=== PATIENT | female | born 1995 | race Caucasian/White ===

== ENCOUNTER 2020-03-04 22:43 | Emergency (ER) | payer MEDICAID ==
[~2020-03-04] VITALS: Ht 149.9 cm; Wt 66.4 kg
[2020-03-04 22:45] VITALS: BP 126/82
[2020-03-04] MEDS ORDERED: SERT25TA PO (23:46)
[2020-03-04] MEDS ORDERED: ARIP10TA15 PO (23:46)
[2020-03-04] MEDS ORDERED: FAMO40TA73 PO (23:46)
== END 2020-03-05 00:02 | disposition home or self-care (01) ==
LOC: ER 22:44
DX: F12.90 Cannabis use, unspecified, uncomplicated (principal); J45.909 Unspecified asthma, uncomplicated; F20.9 Schizophrenia, unspecified; Z72.89 Other problems related to lifestyle; Z76.0 Encounter for issue of repeat prescription; Z59.0 Homelessness; Z79.899 Other long term (current) drug therapy
CPT/HCPCS: 99283

== ENCOUNTER 2020-04-14 10:56 | Emergency (ER) | payer MEDICAID, OTHER ==
[~2020-04-14] VITALS: Ht 149.9 cm; Wt 83.5 kg
[~2020-04-14 10:56] MED LIST: ARIP10TA15 PO; FAMO40TA73 PO; SERT25TA PO
[2020-04-14 11:04] VITALS: BP 118/61
[2020-04-14] MEDS ORDERED: ibuprofen tablet 400 MG TABLET PO ONE (11:55)
== END 2020-04-14 12:09 | disposition home or self-care (01) ==
LOC: ER 10:56
DX: S63.591A Other specified sprain of right wrist, initial encounter (principal); J45.909 Unspecified asthma, uncomplicated; F20.9 Schizophrenia, unspecified; F12.90 Cannabis use, unspecified, uncomplicated; Z72.89 Other problems related to lifestyle; Z59.0 Homelessness; Z79.899 Other long term (current) drug therapy; W18.30XA Fall on same level, unspecified, initial encounter; Y93.89 Activity, other specified; Y92.89 Other specified places as the place of occurrence of the external cause; Y99.8 Other external cause status
CPT/HCPCS: 29125; 73110; 73130; 99284

== ENCOUNTER 2020-04-19 12:38 | Emergency (ER) | payer MEDICAID, OTHER ==
[~2020-04-19] VITALS: Ht 149.9 cm; Wt 78.2 kg
[2020-04-19] MEDS ORDERED: ketorolac tromethamine 15mg/ml inj. IM ONE (13:10)
[2020-04-19] MEDS ORDERED: IBUP-1984 PO (13:39)
[2020-04-19 14:00] VITALS: BP 110/64
== END 2020-04-19 14:04 | disposition home or self-care (01) ==
LOC: ER 12:38
DX: S63.501A Unspecified sprain of right wrist, initial encounter (principal); J45.909 Unspecified asthma, uncomplicated; F20.9 Schizophrenia, unspecified; F12.90 Cannabis use, unspecified, uncomplicated; Z79.899 Other long term (current) drug therapy; Z59.0 Homelessness; Z72.89 Other problems related to lifestyle; W19.XXXA Unspecified fall, initial encounter; Y93.89 Activity, other specified; Y92.89 Other specified places as the place of occurrence of the external cause; Y99.8 Other external cause status
CPT/HCPCS: 73110; 96372; 99284; J1885

== ENCOUNTER 2020-05-01 15:28 | Emergency (ER) | payer MEDICAID ==
[~2020-05-01] VITALS: Ht 149.9 cm; Wt 78.2 kg
[2020-05-01 15:39] VITALS: BP 115/70
== END 2020-05-01 17:06 | disposition home or self-care (01) ==
LOC: ER 15:28
DX: S93.401A Sprain of unspecified ligament of right ankle, initial encounter (principal); J45.909 Unspecified asthma, uncomplicated; F17.200 Nicotine dependence, unspecified, uncomplicated; F12.90 Cannabis use, unspecified, uncomplicated; Z72.89 Other problems related to lifestyle; Z59.0 Homelessness; Z79.899 Other long term (current) drug therapy; X50.1XXA Overexertion from prolonged static or awkward postures, initial encounter; Y93.41 Activity, dancing; Y92.89 Other specified places as the place of occurrence of the external cause; Y99.8 Other external cause status
CPT/HCPCS: 73610; 99283

== ENCOUNTER 2020-12-03 22:18 | Emergency (ER) | payer MEDICAID, OTHER ==
[~2020-12-03] VITALS: Ht 149.9 cm; Wt 78.2 kg
[2020-12-03 22:21] VITALS: BP 154/92
[2020-12-03] MEDS ORDERED: MYCOL30CR TP ×2 (22:57)
[2020-12-04] MEDS ORDERED: MYCOL30CR TP (00:35)
== END 2020-12-03 23:11 | disposition home or self-care (01) ==
LOC: ER 22:20
DX: B37.89 Other sites of candidiasis (principal); J45.909 Unspecified asthma, uncomplicated; F20.9 Schizophrenia, unspecified; F12.90 Cannabis use, unspecified, uncomplicated; Z72.89 Other problems related to lifestyle; Z59.0 Homelessness; Z79.899 Other long term (current) drug therapy
CPT/HCPCS: 99283

== ENCOUNTER 2022-01-05 13:04 | Emergency (ER) | payer SELFPAY ==
[~2022-01-05] VITALS: Ht 160 cm; Wt 84.5 kg
[~2022-01-05 13:04] MED LIST changes: +NYST30CR35 TP
[2022-01-05 13:13] VITALS: BP 133/86
[2022-01-05] MEDS ORDERED: HYDROcodone/acetaminophen 5mg/325mg tablet PO ONE (17:35)
== END 2022-01-05 18:01 | disposition home or self-care (01) ==
LOC: ER 13:05
DX: S06.0X9A Concussion with loss of consciousness of unspecified duration, initial encounter (principal); M25.561 Pain in right knee; R53.83 Other fatigue; R11.10 Vomiting, unspecified; J45.909 Unspecified asthma, uncomplicated; F20.9 Schizophrenia, unspecified; F12.90 Cannabis use, unspecified, uncomplicated; Z72.89 Other problems related to lifestyle; Z59.00 Homelessness unspecified; Z79.899 Other long term (current) drug therapy; X58.XXXA Exposure to other specified factors, initial encounter; Y93.89 Activity, other specified; Y92.89 Other specified places as the place of occurrence of the external cause; Y99.8 Other external cause status
CPT/HCPCS: 29505; 70450; 73564; 99284

== ENCOUNTER 2022-03-31 13:26 | Emergency (ER) | payer MEDICAID ==
[~2022-03-31] VITALS: Ht 149.9 cm; Wt 80.2 kg
[2022-03-31] MEDS ORDERED: HYDROcodone/acetaminophen 10/325mg tab PO ONE (14:45)
[2022-03-31 14:53] LABS: BASOPHILS % (AUTO) 0.5 % (0-1); EOSINOPHILS # (AUTO) 0.1 X10'3 (0-0.9); HEMATOCRIT 40.3 % (35.0-45.0); HEMOGLOBIN 13.7 g/dl (12.0-16.0); LYMPHOCYTES # (AUTO) 3.1 X10'3 (1.1-4.8); LYMPHOCYTES % (AUTO) 31.7 % (21-51); MEAN CORPUSCULAR HEMOGLOBIN 32.1 PG (27.0-31.0); MEAN CORPUSCULAR HGB CONC 33.9 g/dL (33.0-36.5); MEAN CORPUSCULAR VOLUME 94.8 FL (78-98); MONOCYTES # (AUTO) 0.5 X10'3 (0-0.9); MONOCYTES % (AUTO) 5.6 % (2-12); NEUTROPHILS # (AUTO) 5.9 X10'3 (1.8-7.7); NEUTROPHILS % (AUTO) 61.2 % (42-75); PLATELET COUNT 214 X10'3 (140-440); RED BLOOD COUNT 4.26 X10'6 (4.20-5.60); RED CELL DISTRIBUTION WIDTH 13.1 % (11.5-14.5); WHITE BLOOD COUNT 9.7 X10'3 (4.5-11.0)
[2022-03-31 15:17] LABS: ALANINE AMINOTRANSFERASE 15 U/L (12-78); ALBUMIN 3.8 G/DL (3.4-5.0); ALBUMIN/GLOBULIN RATIO 1.2 (1.1-1.5); ALKALINE PHOSPHATASE 70 IU/L (46-116); ANION GAP 8 (8-16); ASPARTATE AMINO TRANSFERASE 14 U/L (10-37); BILIRUBIN,TOTAL 0.2 MG/DL (0.1-1.0); BLOOD UREA NITROGEN 8 MG/DL (7-18); BUN/CREATININE RATIO 12.5 (6.6-38.0); CALCIUM 8.3 MG/DL (8.5-10.1); CHLORIDE 105 MMOL/L (99-107); CREATININE 0.64 MG/DL (0.40-0.90); GLUCOSE 94 MG/DL (70-104); POTASSIUM 4.2 MMOL/L (3.5-5.1); SODIUM 138 MMOL/L (135-145); TOTAL CARBON DIOXIDE 25.2 MMOL/L (24-32); eGFR > 90 ML/MIN
[2022-03-31] MEDS ORDERED: HYDR-3965 PO (16:42)
[2022-03-31 17:18] VITALS: BP 121/76
== END 2022-03-31 17:27 | disposition home or self-care (01) ==
LOC: ER 13:27
DX: M77.8 Other enthesopathies, not elsewhere classified (principal); G89.29 Other chronic pain; M25.561 Pain in right knee; F17.210 Nicotine dependence, cigarettes, uncomplicated; F20.9 Schizophrenia, unspecified; J45.909 Unspecified asthma, uncomplicated; Z59.00 Homelessness unspecified; Z79.899 Other long term (current) drug therapy
CPT/HCPCS: 36415; 73564; 76882; 80053; 83735; 84550; 85025; 85651; 86140; 99285

== ENCOUNTER 2024-02-22 13:27 | Emergency (ER) | payer MEDICAID, OTHER ==
[~2024-02-22] VITALS: Ht 149.9 cm; Wt 85.5 kg
[2024-02-22 13:48] VITALS: TEMP 96.2
[2024-02-22] MEDS: ondansetron 4mg rapidly disintigrating tab PO ONE (14:26)
[2024-02-22 14:38] LABS: URINE HCG NEGATIVE (NEG)
[2024-02-22 14:40] LABS: CLARITY,URINE CLEAR (Clear); COLOR,URINE YELLOW (Yellow); PH,URINE 5.5 (4.8-8.0); UA COLLECTION TYPE CLN CATCH MIDSTREAM
[2024-02-22 14:41] LABS: BILIRUBIN,URINE NEGATIVE (Neg); GLUCOSE, URINE NEGATIVE (Neg); KETONES,URINE NEGATIVE (Neg); LEUKOCYTE ESTERASE ,URINE NEGATIVE (Neg); NITRITES, URINE NEGATIVE (Neg); OCCULT BLOOD,URINE NEGATIVE (Neg); PROTEIN,URINE NEGATIVE (Neg); UROBILINOGEN,URINE 0.2 E.U/dL (0.2-1.0)
[2024-02-22 14:50] LABS: BASOPHILS # (AUTO) 0.1 X10'3 (0-0.2); BASOPHILS % (AUTO) 0.5 % (0-1); EOSINOPHILS # (AUTO) 0.2 X10'3 (0-0.9); EOSINOPHILS % (AUTO) 1.9 % (0-6); HEMATOCRIT 42.1 % (35.0-45.0); LYMPHOCYTES # (AUTO) 2.7 X10'3 (1.1-4.8); LYMPHOCYTES % (AUTO) 26.4 % (21-51); MEAN CORPUSCULAR HEMOGLOBIN 31.9 PG (27.0-31.0); MEAN CORPUSCULAR HGB CONC 33.2 g/dL (33.0-36.5); MEAN CORPUSCULAR VOLUME 96.1 FL (78-98); MEAN PLATELET VOLUME 10.1 FL (7.4-10.4); MONOCYTES # (AUTO) 0.8 X10'3 (0-0.9); MONOCYTES % (AUTO) 7.9 % (2-12); NEUTROPHILS # (AUTO) 6.5 X10'3 (1.8-7.7); NEUTROPHILS % (AUTO) 63.3 % (42-75); PLATELET COUNT 212 X10'3 (140-440); RED BLOOD COUNT 4.38 X10'6 (4.20-5.60); RED CELL DISTRIBUTION WIDTH 13.9 % (11.5-14.5); WHITE BLOOD COUNT 10.2 X10'3 (4.5-11.0)
[2024-02-22] MEDS: normal saline 1000ML IV soln IVB ONE (15:01)
[2024-02-22] MEDS: metoclopramide 5 mg/ml inj IV ONE (15:01)
[2024-02-22] MEDS: diphenhydrAMINE 50 mg/ml inj IV ONE (15:02)
[2024-02-22 15:09] LABS: ALANINE AMINOTRANSFERASE 17 U/L (12-78); ALBUMIN 3.7 G/DL (3.4-5.0); ALBUMIN/GLOBULIN RATIO 1.1 (1.1-1.5); ALKALINE PHOSPHATASE 71 IU/L (46-116); ANION GAP 8 (8-16); ASPARTATE AMINO TRANSFERASE 19 U/L (10-37); BILIRUBIN,TOTAL 0.3 MG/DL (0.1-1.0); BLOOD UREA NITROGEN 12 MG/DL (7-18); BUN/CREATININE RATIO 18.8 (10.0-20.0); CALCIUM 8.5 MG/DL (8.5-10.1); CHLORIDE 106 MMOL/L (99-107); CREATININE 0.64 MG/DL (0.40-0.90); GLUCOSE 95 MG/DL (70-104); LIPASE 42 U/L (16-77); POTASSIUM 3.9 MMOL/L (3.5-5.1); SODIUM 138 MMOL/L (135-145); TOTAL CARBON DIOXIDE 23.9 MMOL/L (24-32); eCRCL 90 ML/MIN; eGFR > 90 ML/MIN
[2024-02-22] MEDS ORDERED: ONDA-245 PO (15:16)
[2024-02-22 16:03] VITALS: BP 134/93; PULSE 60; RESP 16; O2SAT 98
== END 2024-02-22 16:05 | disposition home or self-care (01) ==
LOC: ER 13:28
DX: R10.13 Epigastric pain (principal); R11.10 Vomiting, unspecified; J45.909 Unspecified asthma, uncomplicated; F20.9 Schizophrenia, unspecified; F12.90 Cannabis use, unspecified, uncomplicated; Z88.1 Allergy status to other antibiotic agents; Z87.19 Personal history of other diseases of the digestive system
CPT/HCPCS: 36415; 80053; 81003; 81025; 83690; 85025; 96361; 96374; 96375; 99284; J1200; J2765; J7030

== ENCOUNTER 2024-10-23 14:01 | Emergency (ER) | payer MEDICAID, OTHER ==
[~2024-10-23] VITALS: Ht 152.4 cm; Wt 68.2 kg
[~2024-10-23 14:01] MED LIST changes: -NYST30CR35 TP; +NYST30CR46 TP; +ONDA-245 PO
--- NOTE | 2024-10-23 14:36 | RADIOLOGY REPORT ---
CLINICAL INDICATION: ANKLE PAIN TECHNIQUE: 3 radiographic views of the left ankle T1 were obtained. Comparison: ANKLE, COMPLETE(3VW MIN) on DOS: 05/01/20 FINDINGS/IMPRESSION: There is no evidence of acute fracture or dislocation. The visualized joint space is well maintained. The alignment is anatomical. There is no radiopaque foreign body.
--- NOTE | 2024-10-23 14:36 | RADIOLOGY REPORT ---
CLINICAL INDICATION: FOOT PAIN TECHNIQUE: 4 radiographic views of the left foot were obtained. Comparison: None FINDINGS/IMPRESSION: There is no evidence of acute fracture or dislocation. The visualized joint space is well maintained. The alignment is anatomical. There is no radiopaque foreign body.
--- NOTE | 2024-10-23 16:10 | Physician Documentation ---
History of Present Illness General Chief Complaint: Ankle pain Stated Complaint: L FOOT PAIN Time Seen by MD: 15:48 Primary Medical Doctor: NONE History of Present Illness Initial Comments 29-year-old female presents to emergency department for evaluation of left ankle injury. Secondary concerns of rash of the right upper extremity left lower extremity. Patient wonders if he has maybe infectious or from bug bites. Patient obviously under the influence a methamphetamines. Medication Reconciliation Allergies: Coded Allergies: No Known Allergies (Unverified , 02/22/24) Scheduled Aripiprazole* (Abilify*), 1 TAB PO DAILY Famotidine (Pepcid), 1 TAB PO DAILY Nystatin/Triamcin Cream* (Mycolog Cream*), 1 APPLIC TP BID Ondansetron 8mg ODT (Ondansetron Odt), 1 TAB PO Q8H Sertraline Hcl* (Zoloft*), 1 TAB PO DAILY Past Medical History Past Medical History: Asthma, Gastritis, Schizophrenia Past Surgical History: noncontributory Alcohol Use: Heavy Drug Use: marijuana Lives In: Homeless Review of Systems All Other Systems at this time: Reviewed and Negative Musc: Reports: joint pain, joint swelling Integ: Reports: rash Physical Exam Physical Exam Vital Signs: RN Vital Signs have been reviewed: Yes, Temperature: 98.0, Source: Temporal, Heart Rate: 117, Respiratory Rate: 16, BP: 98/53, Pulse Oximetry: 96, Weight: 68.180 Oxygen Flow Rate: 0 General Appearance: alert, WD/WN, other (meth use) Head: normal inspection Face: normal inspection Pupils/EOM/Fundus: PERRLA Neck: non-tender Respiratory: no respiratory distress Extremities: swelling Neurologic: oriented x4, remanufacturing technician II-XII nml as tested Psychiatric: normal mood/affect, anxiety Skin: normal color Progress Results/Orders Results/Orders Orders - JENNY GIRON Acetaminophen 325mg Tablet (Tylenol Tabl (10/23/24 16:05) Vital Signs 10/23/24 14:02 Temp 98.0 Pulse 117 Resp 16 B/P (MAP) 98/53 Pulse Ox 96 O2 Flow Rate 0 Medical Decision Making Differential Diagnosis Examination history consistent with left ankle injury. Patient's x-rays are r eassuring for no fracture dislocation. She will receive Maurilio wrap for comfort and support. Outpatient Rx for coverage of skin rash. Departure Disposition: HOME / SELF CARE / HOMELESS Impression: Primary Impression: Sprain of ankle Qualified Codes: S93.402A - Sprain of unspecified ligament of left ankle, initial encounter Additional Impression: Skin rash Condition: Improved Discharge Instructions: Ankle Sprain Additional Instructions: Please wear your Maurilio wrap for comfort and support. Take Tylenol as directed for pain and begin antibiotic. They primary care follow up and a return if worse. Referrals: NO PRIMARY CARE PROVIDER (PCP) Education Educated: Patient Educated regarding: diagnosis, treatment Signature Scribe Signature: . Attestation: . JENNY GIRON PAC Oct 23, 2024 16:10
[2024-10-23] MEDS: acetaminophen 325mg tablet PO ONE (16:14)
[2024-10-23 16:28] VITALS: BP 100/68; PULSE 83; RESP 16; TEMP 98; O2SAT 99
== END 2024-10-23 16:29 | disposition home or self-care (01) ==
LOC: ER 14:02
DX: S93.492A Sprain of other ligament of left ankle, initial encounter (principal); R21 Rash and other nonspecific skin eruption; J45.909 Unspecified asthma, uncomplicated; F20.9 Schizophrenia, unspecified; F12.90 Cannabis use, unspecified, uncomplicated; Z79.899 Other long term (current) drug therapy; Z59.00 Homelessness unspecified; X58.XXXA Exposure to other specified factors, initial encounter; Y93.89 Activity, other specified; Y92.89 Other specified places as the place of occurrence of the external cause; Y99.8 Other external cause status
CPT/HCPCS: 73610; 73630; 99284; A6449

== ENCOUNTER 2024-10-27 04:36 | Emergency (ER) | payer MEDICAID ==
[~2024-10-27] VITALS: Ht 152.4 cm; Wt 65.9 kg
--- NOTE | 2024-10-27 05:34 | VISIT NOTE ---
ED Rapid Medical Assessment History 29-year-old female with known abscesses to right thigh, bilateral upper extremities, seen here several days ago, prescribed antibiotics but did not pick him up, presents for evaluation of worsening pain, redness, drainage from the abscess sites. Pain is moderate in its intensity. Redness is spreading especially on her right thigh. Reports chills without fever. Exam: Physical examination: GENERAL: Awake, alert, oriented, GCS 15, no apparent distress, non-toxic appearing, answers questions, follows commands appropriately. HEENT: Atraumatic, normocephalic, pupils equal, extraocular muscles intact Active gross movements, sclerae anicteric, mucus membranes moist, no stridor. NECK: Midline, no JVD CARDIOVASCULAR: Good skin perfusion without evidence of pallor, mottling. PULMONARY: Nonlabored, symmetric chest rise, no audible wheezing, no accessory muscle use, no respiratory distress, speaking in full sentences. GASTROINTESTINAL: Not distended. NEUROLOGIC: Lucid with normal mental status. Normal facial symmetry. Moves all extremities symmetrically and with purpose. No truncal ataxia. Speech is fluid without evidence of dysarthria or aphasia, no focal deficits appreciated. EXTREMITIES: Acute deformities Skin: warm, dry PSYCHIATRIC: Normal affect, normal insight, normal concentration. Focused exam: [] Fairly large area of a 15 x 15 cellulitis with large fluctuant area of approximately 5 cm abscess to the mid anterior thigh on the right side. Smaller 3 cm bilateral upper extremity abscesses. No purulent drainage. Calor and erythema noted. Assessment and Plan Considering this is a bounce back, we will obtain labs and provide IV antibiotics. LAVONNE POLANCO DO Oct 27, 2024 05:34
--- NOTE | 2024-10-27 06:13 | Physician Documentation ---
History of Present Illness ~ Chief Complaint: Abscess Stated Complaint: ABSCESS Time Seen by MD: 06:01 Primary Medical Doctor: NONE Mode of Arrival: POV HPI Patient presenting for evaluation of abscesses. She is complaining of painful large abscess to her right thigh left forearm and right forearm. She also reports having diarrhea a few days ago which has resolved. She has not taken any of her prescribed antibiotics due to not having any money Tetanus Within 5 Years: No Medication Reconciliation Allergies: Coded Allergies: No Known Allergies (Unverified , 02/22/24) Scheduled Aripiprazole* (Abilify*), 1 TAB PO DAILY Cephalexin (Cephalexin), 1 CAP PO Q6H Doxycycline Hyclate (Doxycycline Hyclate), 1 TAB PO Q12H Famotidine (Pepcid), 1 TAB PO DAILY Nystatin/Triamcin Cream* (Mycolog Cream*), 1 APPLIC TP BID Ondansetron 8mg ODT (Ondansetron Odt), 1 TAB PO Q8H Potassium Chloride* (Klor-Con*), 1 TAB PO QID Sertraline Hcl* (Zoloft*), 1 TAB PO DAILY Past Medical History Past Medical History: Asthma, Gastritis, Schizophrenia Past Surgical History: noncontributory Alcohol Use: Heavy Drug Use: marijuana Lives In: Homeless Review of Systems All Other Systems at this time: Reviewed and Negative Constitutional: Denies: fever Physical Exam Vital Signs: Temperature: 98.9, Heart Rate: 85, Respiratory Rate: 16, BP: 144/85, Pulse Oximetry: 99, Weight: 65.910 Oxygen Flow Rate: 0 Physical Exam Well-appearing no distress Large fluctuant abscess right medial thigh Moderate fluctuant abscess right forearm Moderate size fluctuant abscess left forearm Procedures I & D Procedure #1: Anesthesia: Lidocaine w/ Epi Blade Size: 11 Prep/Supplies: betadine prep, drapes applied, irrigated, packing placed Incision: pus drained Tolerated Procedure Well?: no Procedure Note 1 cm incision made over medial thigh 30 cc purulent material drained out Irrigated with sterile saline I & D Procedure #2: Anesthesia: Lidocaine w/ Epi Blade Size: 11 (Yes another abscess or whenever on her hand show that she has had) Prep/Supplies: dressing applied, irrigated Incision: pus drained Tolerated Procedure Well?: no Procedure Note 1 cm incision made over right dorsal forearm drained 10 cc pus irrigated I & D Procedure #3: Anesthesia: Lidocaine w/ Epi Blade Size: 11 Prep/Supplies: betadine prep, dressing applied, irrigated Incision: pus drained Tolerated Procedure Well?: no Procedure Note 1 cm incision placed over left dorsal forearm 10 cc purulent material expressed Progress Results/Orders Results/Orders Orders - LAVONNE GREEN MD Culture Body Fluid Order (10/27/24 09:34) Cult (Aer) Routine C&S+Gram St (10/27/24 07:10) Completed Orders - LAVONNE GREEN MD Lidocaine 1% W/Epi 1:100,000 (Xylocaine (10/27/24 06:30) Electrocardiogram (10/27/24 ) Potassium Cl Sr Tablet (K-Dur Tablet) (10/27/24 06:43) Morphine 10mg/Ml Inj. (Morphine Inj.) (10/27/24 07:10) Potassium Cl 20meq/100ml Bag (Potassium (10/27/24 07:15) Magnesium Oxide Tablet (Mag-Ox 400mg Tab (10/27/24 07:20) Magnesium Sulf-Water 2g/50ml (Magnesium (10/27/24 07:25) Potassium Cl 10meq/100ml Bag (Potassium (10/27/24 07:30) Potassium Cl 10meq/100ml Bag (Potassium (10/27/24 08:30) Ketamine 50mg/Ml 10ml Inj (Ketamine 50mg (10/27/24 08:15) Medications Received in ER Medications (Trade) Dose Ordered Sig/Valentin Route PRN Reason Start Time Stop Time Status Last Admin Dose Admin Ampicillin Sodium/ Sulbactam Sodium 100 ml @ 200 mls/hr Q6H IV 10/27/24 05:36 10/27/24 06:05 Cancel 10/27/24 08:27 200 MLS/HR (K-DUR tablet) 40 meq ONCE STAT PO 10/27/24 06:43 10/27/24 07:06 DC 10/27/24 07:47 40 MEQ (morphine inj.) 6 mg ONCE ONCE IV 10/27/24 07:10 10/27/24 07:11 DC 10/27/24 07:47 6 MG (mag-Ox 400mg tablet) 800 mg ONCE ONCE PO 10/27/24 07:20 10/27/24 07:27 DC 10/27/24 07:47 800 MG Potassium Chloride 100 ml @ 100 mls/hr ONCE ONCE IV 10/27/24 07:30 10/27/24 08:29 DC 10/27/24 09:37 100 MLS/HR (ketamine 50mg/ ml 10ml inj) 20 mg ONCE ONCE IV 10/27/24 08:15 10/27/24 08:23 DC 10/27/24 09:38 25 MG Vital Signs 10/27/24 10/27/24 10/27/24 10/27/24 04:39 05:46 06:49 06:50 Temp 98.9 98.9 Pulse 85 72 Resp 16 16 16 18 B/P (MAP) 144/85 120/70 (87) Pulse Ox 99 99 O2 Flow Rate 0 0 10/27/24 07:47 Resp 16 Laboratory Tests Test 10/27/24 06:00 White Blood Count 12.1 H Red Blood Count 4.08 L Hemoglobin 12.8 Hematocrit 38.2 Mean Corpuscular Volume 93.5 Mean Corpuscular Hemoglobin 31.4 H Mean Corpuscular Hemoglobin Concent 33.6 Red Cell Distribution Width 13.2 Platelet Count 214 Mean Platelet Volume 10.7 H Neutrophils (%) (Auto) 74.4 Lymphocytes (%) (Auto) 15.5 L Monocytes (%) (Auto) 8.6 Eosinophils (%) (Auto) 1.2 Basophils (%) (Auto) 0.3 Neutrophils # (Auto) 9.0 H Lymphocytes # (Auto) 1.9 Monocytes # (Auto) 1.0 H Eosinophils # (Auto) 0.1 Basophils # (Auto) 0.0 CBC Comment Sodium Level 139 Potassium Level 2.2 *L Chloride Level 99 Carbon Dioxide Level 29.0 Anion Gap 11 Blood Urea Nitrogen 6 L Creatinine 0.70 Estimated GFR/1.73 m2 > 90 BUN/Creatinine Ratio 8.6 L Glucose Level 100 Lactic Acid Level 1.0 Calcium Level 8.5 Magnesium Level 2.0 Total Bilirubin 0.5 Aspartate Amino Transf (AST/SGOT) 18 Alanine Aminotransferase (ALT/SGPT) 28 Alkaline Phosphatase 85 C-Reactive Protein 8.78 H Total Protein 7.5 Albumin 3.4 Globulin 4.1 Albumin/Globulin Ratio 0.8 L Chemistry Comments Microbiology Date/Time Source Procedure Growth Status 10/27/24 06:00 Blood A/C Right Blood Culture - Preliminary NEGATIVE (LESS THAN 24 HOURS) Resulted EKG/XRAY/CT/US/VASC/MRI EKG : Additional Comment EKG independently interpreted by myself time 6:56 a.m. indication hypokalemia normal sinus rhythm rate 73 normal axis QTC prolongation [address] depression Departure Disposition: 07 LEFT AGAINST MEDICAL ADVICE Impression: Primary Impression: Abscess Additional Impression: Hypokalemia Additional Impression Text As discussed your potassium levels are critically low. This can lead to abnormal rhythms of your heart which can potentially kill you. We strongly recommend that you stay in the hospital for treatment and evaluation of this electrolyte imbalance. You however do not want to stay in the hospital so the next best alternative is treatment as an outpatient with oral potassium repletion. Please reach out to your primary care physician to facilitate outpatient treatment and evaluation Referrals: NO PRIMARY CARE PROVIDER (PCP) Prescriptions Potassium Chloride* (Klor-Con*) 10 Meq Tablet.sa 1 TAB PO QID for 7 Days, #28 TAB Prov: LAVONNE GREEN MD 10/27/24 Cephalexin (Cephalexin) 500 Mg Capsule 1 CAP PO Q6H for 7 Days, #28 CAP Prov: LAVONNE GREEN MD 10/27/24 Doxycycline Hyclate (DOXYCYCLINE HYCLATE) 150 Mg Tablet.dr 1 TAB PO Q12H for 7 Days, #14 TAB Prov: LAVONNE GREEN MD 10/27/24 Critical Care Note Total Time (mins): 30 Critical Care Note The very real possibility of a deterioration of this patient's condition required the highest level of my preparedness for sudden, emergent intervention. I provided critical care services, which included medication orders, frequent reevaluations of the patient's condition and response to treatment, ordering and reviewing test results, and discussing the case with various consultants. Excludes time spent performing separately billable procedures. The critical care time associated with the care of the patient was 30 minutes in the management of severe hypokalemia requiring IV replacement Signature Scribe Signature: [email or web address] Attestation: LAVONNE Greene MD Oct 27, 2024 06:12
[2024-10-27 06:23] LABS: BASOPHILS % (AUTO) 0.3 % (0-1); EOSINOPHILS # (AUTO) 0.1 X10'3 (0-0.9); EOSINOPHILS % (AUTO) 1.2 % (0-6); HEMATOCRIT 38.2 % (35.0-45.0); HEMOGLOBIN 12.8 g/dl (12.0-16.0); LYMPHOCYTES # (AUTO) 1.9 X10'3 (1.1-4.8); LYMPHOCYTES % (AUTO) 15.5 % (21-51); MEAN CORPUSCULAR HEMOGLOBIN 31.4 PG (27.0-31.0); MEAN CORPUSCULAR HGB CONC 33.6 g/dL (33.0-36.5); MEAN CORPUSCULAR VOLUME 93.5 FL (78-98); MEAN PLATELET VOLUME 10.7 FL (7.4-10.4); MONOCYTES % (AUTO) 8.6 % (2-12); NEUTROPHILS % (AUTO) 74.4 % (42-75); PLATELET COUNT 214 X10'3 (140-440); RED BLOOD COUNT 4.08 X10'6 (4.20-5.60); RED CELL DISTRIBUTION WIDTH 13.2 % (11.5-14.5); WHITE BLOOD COUNT 12.1 X10'3 (4.5-11.0)
[2024-10-27] MEDS: LIDOcaine 1% W/epiNEPHrine 1:100,000 20ml vial SQ ONE (06:30)
[2024-10-27 06:35] LABS: ALANINE AMINOTRANSFERASE 28 U/L (12-78); ALBUMIN 3.4 G/DL (3.4-5.0); ALBUMIN/GLOBULIN RATIO 0.8 (1.1-1.5); ALKALINE PHOSPHATASE 85 IU/L (46-116); ANION GAP 11 (8-16); ASPARTATE AMINO TRANSFERASE 18 U/L (10-37); BILIRUBIN,TOTAL 0.5 MG/DL (0.1-1.0); BLOOD UREA NITROGEN 6 MG/DL (7-18); BUN/CREATININE RATIO 8.6 (10.0-20.0); C-REACTIVE PROTEIN 8.78 MG/DL (0.0-0.5); CALCIUM 8.5 MG/DL (8.5-10.1); CHLORIDE 99 MMOL/L (99-107); GLUCOSE 100 MG/DL (70-104); SODIUM 139 MMOL/L (135-145); TOTAL PROTEIN 7.5 G/DL (6.4-8.2); eCRCL 86 ML/MIN; eGFR > 90 ML/MIN
[2024-10-27 06:39] LABS: POTASSIUM 2.2 MMOL/L (3.5-5.1)
[2024-10-27] MEDS ORDERED: potassium Cl 20mEq/100mL bag 100 ML IV ONE ×2 (07:15→07:25)
[2024-10-27] MEDS ORDERED: DOXY150T9 PO (07:17)
[2024-10-27] MEDS ORDERED: CEPH500C81 PO (07:17)
[2024-10-27] MEDS ORDERED: POTA-188 PO (07:18)
[2024-10-27] MEDS ORDERED: magnesium sulf-water 2g/50mL 50 ML IV ONE (07:25)
--- NOTE | 2024-10-27 07:30 | ELECTROCARDIOGRAPH REPORT ---
[facility] Test Date: 2024-10-27 Test Time: 06:55:47 Pat Name: JODI HOYT Department: EMERGENCY ROOM Room: Gender: F Graphic Designer: Y[place] : 1995 Requested By: LAVONNE GREEN Order Number: [id number] Reading MD: Measurements Intervals [place] Rate: 73 P: 62 TX: 153 QRS: 58 QRSD: 111 T: 6 QT: 446 QTc: 492 Interpretive Statements Atrial-paced complexes Borderline Q waves in inferior leads Minimal ST depression, diffuse leads Borderline prolonged QT interval Please click the below link to view image of tracing.
[2024-10-27] MEDS: magnesium oxide 400mg tablet PO ONE (07:47)
[2024-10-27] MEDS: potassium Cl 20 mEq SR tablet PO STA (07:47)
[2024-10-27] MEDS: morphine 10mg/ml inj. IV ONE (07:47)
[2024-10-27] MEDS: ampicillin/sulbac 3gm/NS 100ml 100 ML IV SCH (08:27)
[2024-10-27] MEDS: ampicillin/sulbac 3gm/NS 100ml 100 ML IV ONE (08:28)
[2024-10-27] MEDS: potassium CL 10mEq/100ml bag 100 ML IV ONE ×2 (08:30→09:37)
[2024-10-27] MEDS: ketamine 50 mg/ml 10ml vial IV ONE (09:38)
[2024-10-27 11:10] VITALS: BP 124/78; PULSE 98; RESP 15; TEMP 98.9; O2SAT 99
== END 2024-10-27 11:14 | disposition left against medical advice (07) ==
LOC: ER 04:37
DX: L02.415 Cutaneous abscess of right lower limb (principal); J45.909 Unspecified asthma, uncomplicated; E87.6 Hypokalemia; F20.9 Schizophrenia, unspecified; F12.90 Cannabis use, unspecified, uncomplicated; Z79.899 Other long term (current) drug therapy; Z59.00 Homelessness unspecified
CPT/HCPCS: 10061; 36415; 80053; 83605; 83735; 85025; 86140; 87040; 87070; 87077; 87186; 93005; 96365; 96367; 96375; 99284; A6266; A6407; J0295; J2274; J3480; J3490; J7030; A6258; A6449